=== PATIENT | female | born 1995 | race Caucasian/White ===

== ENCOUNTER 2025-08-23 13:57 | Emergency (ER) | payer MEDICAID ==
[~2025-08-23] VITALS: Ht 167.6 cm; Wt 69.0 kg
[2025-08-23 14:00] VITALS: PULSE 90; RESP 16; O2SAT 99
[2025-08-23 14:17] VITALS: BP 132/85; TEMP 37.1; O2SAT 98
[2025-08-23 15:30] LABS: BASOPHILS % 0.6 % (0.0-2.0); EOSINOPHILS % 3.2 % (0.0-5.0); HEMATOCRIT. 41.7 % (36.0-48.0); HEMOGLOBIN. 14.2 g/dL (12.0-16.0); LYMPHOCYTES % 28.7 % (20.0-50.0); MEAN PLATELET VOLUME 8.7 fl (7.4-10.4); MONOCYTES % 6.6 % (2.0-8.0); NEUTROPHILS % 60.9 % (40.0-76.0); PLATELET 220 x1000/uL (130-400); RED BLOOD CELL COUNT 4.69 mill/uL (4.2-5.4); RED CELL DISTRIBUTION WIDTH 12.7 % (11.6-14.6)
[2025-08-23 15:51] LABS: CREATININE 0.9 mg/dL (0.6-1.0); UREA NITROGEN BLOOD 8 mg/dL (9-23)
[2025-08-23] MEDS ORDERED: IBUP-2030 MT (16:02)
[2025-08-23] MEDS ORDERED: AMOX1TAB16 MT (16:02)
== END 2025-08-23 16:18 | disposition home or self-care (01) ==
LOC: ER 13:57
DX: K02.9 Dental caries, unspecified (principal); K04.7 Periapical abscess without sinus; Z90.49 Acquired absence of other specified parts of digestive tract; Z98.51 Tubal ligation status
CPT/HCPCS: 36415; 80048; 85025; 99283